=== PATIENT | male | born 1980 | race Caucasian/White ===

== ENCOUNTER 2016-10-25 22:19 | Emergency (ER) | payer OTHER ==
[~2016-10-25] VITALS: Ht 170.2 cm; Wt 92.3 kg
[2016-10-25 22:44] VITALS: BP 122/71; PULSE 79; RESP 20; O2SAT 100
--- NOTE | 2016-10-25 22:53 | ED.REPORT ---
HPI-Chest Pain Under 40 Date of Service Oct 25, 2016 ED Provider: David Bell MD A 36 year old male with a history of smoking, hypertension and a previous cardiac event is brought to the ED via EMS due to chest pain. The pt was resting this evening when he experienced sudden onset sharp back pain radiating into his neck, jaw and chest. This is accompanied by pale, cool skin, diaphoresis, nausea and dizziness. His heart rate was 120 at the time. The symptoms lasted for a total of approximately twenty minutes and resolved by the time paramedics arrived. The pt denies cough or GERD symptoms. He also denies recent travel. The pt reports increased stress lately and recently began smoking again. He had a grossly negative angiogram two years ago. Nursing Notes Stated Complaint: CHEST PAIN RESOLVED Chief Complaint: Chest Pain Nursing Notes Reviewed: Yes Allergies: Coded Allergies: No Known Allergies (Unverified , 10/25/16) Scheduled Clotrimazole 1% (Gyne-Lotrimin 7 1%) 45 Gm Cream.appl 1 APPLIC TOPICAL BID Omeprazole (Omeprazole) 20 Mg Tablet.dr 20 MG PO DAILY General Time Seen by MD: 22:52 Chief Complaint Chest pain Hx Obtained From: Patient, EMS Arrived By: Ambulance Sudden in Onset?: Yes Onset Occurred: 1 - 4 hours ago Symptom Duration: 16 - 30 minutes Recent Healthcare: No recent doctor visit, No recent hospitalization Similar Sx Previous: Yes Past Medical History Past Medical History hypertension previous cardiac event, treated at [facility] Past Surgical History none reported Smoking History Current Every Day Smoker Social History Alcohol Use: "Social" Ambulatory Status Independent Review of Systems Review of Systems Note: pale, cool skin jaw pain Respiratory: Denies: Non-productive cough, Shortness of breath Cardiovascular: Reports: Chest pain GI: Reports: Nausea, Denies: Abdominal pain, Vomiting Musculoskeletal: Reports: Back pain, Neck pain Skin: Denies Rash Neurologic: Reports: Dizziness Psychiatric: Reports: Stress Complete sys rev & neg: except as marked. Physical Exam Initial Vital Signs Vital Signs (First) Date Time Temp Pulse Resp B/P Pulse Ox O2 Delivery O2 Flow Rate FiO2 10/25/16 22:44 37.1 79 20 122/71 100 Room Air Initial VS: Reviewed General/Constitutional: Awake, Alert Respiratory / Chest: Atraumatic, Breath sounds NL, Breath sounds = bilat, No respiratory distress Cardiovascular: Heart rate NL, Regular rhythm, Heart sounds NL Neck: Atraumatic, Supple, Full range of motion Abdomen: Atraumatic, Soft, Non-tender Back: Atraumatic, Full range of motion Lower Extremity / Pelvis / MS: Atraumatic, Full range of motion Skin: Color NL, Warm, Dry tinea versicolor rash on back and trunk Neurologic: Oriented X3, Speech NL, No motor deficits, No sensory deficits Psychiatric: Affect NL, Mood NL Head / Eyes: Atraumatic, Normocephalic, PERRL, EOMI ENT: Atraumatic, Mucous membranes moist Upper Extremity / MS: Atraumatic, Full range of motion Interpretation & Diagnostics Lab Results Interpretation Result Diagram: 10/25/16 2304 10/25/16 2304 Test 10/25/16 23:04 10/25/16 23:29 10/25/16 23:42 10/26/16 00:52 White Blood Count 8.4th/mm3 (3.8-10.1) Red Blood Count 5.26mil/mm3 (4.40-5.80) Hemoglobin 14.8g/dL (13.8-17.2) Hematocrit 44.6% (41.0-50.0) Mean Corpuscular Volume 84.8fL (81-100) Mean Corpuscular Hemoglobin 28.1pg (27.0-35.0) Mean Corpuscular Hemoglobin Concent 33.2% (32.0-37.0) Red Cell Distribution Width 13.8% (12.3-15.4) Platelet Count 271bil/L (150-400) Neutrophils (%) (Auto) 52.3% (40-74) Lymphocytes (%) (Auto) 33.0% (14-46) Monocytes (%) (Auto) 9.7% (4-12) Eosinophils (%) (Auto) 4.4% (0-5) Basophils (%) (Auto) 0.4% (0-3) Sodium Level 143mEq/L (134-144) Potassium Level 4.1mEq/L (3.5-5.2) Chloride Level 105mEq/L (97-108) Carbon Dioxide Level 22mmol/L (18-29) Blood Urea Nitrogen 9mg/dL (6-20) Creatinine 0.89mg/dL (0.76-1.27) Estimat Glomerular Filtration Rate 103mL/min (>59) Glucose Level 111mg/dL (60-99) Calcium Level 9.2mg/dL (8.5-10.1) Magnesium Level 2.1mg/dL (1.6-2.6) Total Bilirubin 0.3mg/dL (0.0-1.2) Aspartate Amino Transf (AST/SGOT) 39U/L (0-50) Alanine Aminotransferase (ALT/SGPT) 60U/L (0-44) Alkaline Phosphatase 56U/L (25-150) Total Protein 7.5g/dL (6.4-8.4) Albumin 4.1g/dL (3.4-5.0) Pro-B-Type Natriuretic Peptide 12.97pg/mL (0-86) Prothrombin Time 10.3sec (8.1-12.5) Prothromb Time International Ratio 0.96ratio Activated Partial Thromboplast Time 23.6sec (22.8-33.0) D-Dimer < 0.50mg/L FEU (<0.50) Troponin T 0.010ug/L (0.0-0.011) ECG Interpretation ECG Interpretation: normal sinus rhythm with a rate of 77 ST elevation, probable normal early repol pattern Time: 23:06 Interpreted by: ED physician ECG Interpretation: normal sinus rhythm with a rate of 66 ST elevation, probable early repol pattern no significant change since prior tracing Time: 00:45 Interpreted by: ED physician X-Ray Chest Interpretation Chest Xray Interpretation: normal mediastynum no acute findings Interpretation / Wet Read by: Wet read ED physician Re-Eval/Medical Decision Med Decision/Clinical Course 36-year-old presents with noncardiac chest pain likely esophageal in origin. Negative enzymes 2 and negative EKG. Mild tachycardia. She will stress response. He was hypertensive without, but that has resolved. He has been pain free since before the arrival of paramedics. Stable over the period of observation here. He is discharged now in stable condition for follow-up with PCP. Omeprazole twice daily. Smoking cessation strongly advised. Incidental finding of tinea versicolor pointed out to him and he is provided with clotrimazole by prescription for twice a day use for three weeks. Source of Hx: Old records Re-Evaluation/Progress : Time of Eval: 01:29 Patient Status: Condition improved Re-Evaluation/Progress Note: Pt rechecked, who is resting comfortably. The diagnosis and plan for discharge are discussed. The pt understands and agrees with the plan. All questions are addressed at this time. Counseled Regarding: Diagnosis, Lab results, Need for follow-up, When/why to return to ED Discharge & Departure Primary Impression: Non-cardiac chest pain Additional Impression: Tinea versicolor Disposition: Home Discharge Condition All VS Reviewed: Yes Condition: Stable Patient Instructions: Chest Pain (ED), Esophageal Spasm (ED) Additional Instructions: You will need a stress test of some sort to complete this workup. Call your doctor tomorrow to arrange that. Return if you develop any breathing difficulties or other new symptoms of concern Begin omeprazole twice daily. Apply clotrimazole cream from the nape of your neck down to the mid chest twice daily for three weeks. Referrals: Chong Portillo MD (Family) Scribe Attestation Portions of this note were transcribed by Vinicio Kaur. I, Dr. Bell personally performed the history, physical exam and medical decision-making; I reviewed and confirmed the accuracy of the information in the transcribed note. copies to: Chong Portillo MD, Christopher W MD Oct 25, 2016 22:53 VINICIO KAUR Oct 25, 2016 23:02
[2016-10-25 23:07] LABS: BASOPHILS % (AUTO) 0.4 % (0-3); EOSINOPHILS % (AUTO) 4.4 % (0-5); MONOCYTES % (AUTO) 9.7 % (4-12); Mean Corpuscular Hemoglobin 28.1 pg (27.0-35.0); Mean Corpuscular Volume 84.8 fL (81-100); NEUTROPHILS % (AUTO) 52.3 % (40-74); Platelet Count 271 bil/L (150-400)
[2016-10-25 23:19] LABS: TROPONIN T 0.01 ug/L (0.0-0.011)
[2016-10-25 23:30] LABS: Magnesium 2.1 mg/dL (1.6-2.6)
[2016-10-26 00:06] LABS: D-Dimer < 0.50 mg/L FEU (<0.50); INR 0.96 ratio
[2016-10-26] MEDS ORDERED: Pantoprazole 40 mg ER24 Tablet PO ONE (00:40)
[2016-10-26 00:44] VITALS: BP 114/67; PULSE 75; RESP 16; O2SAT 97
[2016-10-26] MEDS ORDERED: OMEP20TA86 PO (01:25)
[2016-10-26] MEDS ORDERED: CLOT45CR7 TOPICAL (01:30)
[2016-10-26 01:48] VITALS: BP 111/70; PULSE 64; RESP 16; O2SAT 98
--- NOTE | 2016-10-26 15:00 | DRSVH ---
PROCEDURE: X-RAY CHEST ONE VIEW, PORTABLE ([id number]) INDICATIONS: CHEST PAIN TECHNIQUE: One view of the chest was acquired. COMPARISON: [facility], CR, CHEST 2VW, 06/13/2007, 15:42. FINDINGS: Surgical changes and devices: None. Lungs and pleura: No pleural effusions or pneumothorax. Lungs are clear. Mediastinum: Mediastinal contours appear normal. Heart size is normal. Bones and chest wall: No suspicious bony lesions. Overlying soft tissues appear unremarkable. IMPRESSION: No acute cardiopulmonary disease. Dictated by: Cruz SU Interpreted: Cortney Wells MD on 10/26/2016 at 8:50 Approved by: Cortney Wells M.D. on 10/26/2016 at 14:58
== END 2016-10-26 01:49 | disposition home or self-care (01) ==
LOC: EDUNIT# 22:19 → EDBD 22:19 → SED 22:33
DX: R07.89 Other chest pain (principal); B36.0 Pityriasis versicolor; I10 Essential (primary) hypertension; F17.210 Nicotine dependence, cigarettes, uncomplicated